=== PATIENT | male | born 1990 ===

== ENCOUNTER 2020-01-01 18:34 | Emergency (ER) | payer OTHER, SELFPAY ==
[~2020-01-01] VITALS: Ht 172.7 cm; Wt 127.0 kg
[2020-01-01] MEDS ORDERED: ACETAMINOPHEN 325 MG TAB PO STA (19:18)
[2020-01-01] MEDS ORDERED: ACETAMINOPHEN 325 MG TAB ONE (19:27)
--- NOTE | 2020-01-01 23:41 | Emergency Department Note ---
History of Present Illnes History of Present Illness Chief Complaint: COVID PUI History of Present Illness This is a 29 year old male with fever and myalgias of 3 days duration . Historian: Patient Arrival Mode: Car Streetcar [employer] Required: No Onset (how long ago): day(s) Severity: mild Duration (how long): hour(s) Timing of current episode: constant Progression: worsening Context: Reports recent illness Associated symptoms: Reports cough, Reports fever/chills, Reports malaise Past Medical/Family History Physician Review I have reviewed the patient's past medical and family history. Any updates have been documented here. Past Medical History Recent Fever: Yes Clinical Suspicion of Infectio: Yes New/Unexplained Change in Ment: No Past Medical History: None Past Surgical History: None Social History Physically hurt or threatened: No Review of Systems Review of Systems Constitutional: Reports fever, Reports malaise, Reports weakness EENTM: Reports no symptoms Cardiovascular: Reports no symptoms Respiratory: Reports no symptoms Gastrointestinal: Reports no symptoms Genitourinary: Reports no symptoms Musculoskeletal: Reports no symptoms Integumentary: Reports no symptoms Neurological: Reports no symptoms Psychological: Reports no symptoms Endocrine: Reports no symptoms Hematological/Lymphatic: Reports no symptoms Physical Exam Related Data Allergies: Coded Allergies: No Known Allergies (Unverified , 01/01/20) Triage Vital Signs Vital Signs Date Time Temp Pulse Resp B/P (MAP) Pulse Ox O2 Delivery O2 Flow Rate FiO2 01/01/20 19:06 102.7 113 18 136/88 96 Room Air Vital signs reviewed: Yes Physical Exam CONSTITUTIONAL Constitutional: Present well-developed, Present well-nourished HENT HENT: Present normocephalic, Present atraumatic, Present oropharynx clear/moist, Present nose normal HENT L/R: Present left ext ear normal, Present right ext ear normal EYES Eyes: Reports PERRL, Reports conjunctivae normal NECK Neck: Present ROM normal PULMONARY Pulmonary: Present effort normal, Present breath sounds normal CARDIOVASCULAR Cardiovascular: Present heart sounds normal, Present tachycardia GASTROINTESTINAL Abdominal: Present soft, Present nontender, Present bowel sounds normal GENITOURINARY Genitourinary: Present exam deferred SKIN Skin: Present warm, Present dry MUSCULOSKELETAL Musculoskeletal: Present ROM normal NEUROLOGICAL Neurological: Present alert, Present oriented x 3, Present no gross motor or sensory deficits PSYCHOLOGICAL Psychological: Present mood/affect normal, Present judgement normal Assessment & Plan Medical Decision Making MDM 29 yom with fever and myalgias. (+) contact with family members with similiar symptoms. COVID-19 highly suspected , testing done. Patient to be given Rx A zithromycin and albuterol. Assessment & Plan Final Impression: (1) Viral syndrome Depart Disposition: HOME, SELF-CARE Last Vital Signs Date Time Temp Pulse Resp B/P (MAP) Pulse Ox O2 Delivery O2 Flow Rate FiO2 01/01/20 19:06 102.7 113 18 136/88 96 Room Air Medications in the ED Acetaminophen 975 mg ONCE STAT PO Last administered on 01/01/20at 19:20; Admin Dose 975 MG; Start 01/01/20 at 19:18; Stop 01/01/20 at 20:11; Status DC Acetaminophen 975 mg STK-MED ONCE .ROUTE ; Start 01/01/20 at 19:27; Stop 01/01/20 at 19:22; Status DC DOE MCKENNA DO Jan 01, 2020 23:41
[2020-01-02 04:15] VITALS: BP 128/79
== END 2020-01-01 22:45 | disposition home or self-care (01) ==
LOC: ER 19:30
DX: B34.9 Viral infection, unspecified (principal); R50.9 Fever, unspecified; M79.10 Myalgia, unspecified site
CPT/HCPCS: 87635